=== PATIENT | female | born 1960 | race Caucasian/White ===

== ENCOUNTER 2017-03-23 05:36 | Day surgery (SDC) | payer OTHER ==
--- NOTE | 2017-03-09 16:49 | NUR ---
JOINT REPLACEMENT PREOP CLASS PATIENT ATTENDED JOINT REPLACEMENT PREOP CLASS. CASE MANAGEMENT CONTACT INFORMATION PROVIDED. EDUCATION WAS PROVIDED REGARDING WHAT TO EXPECT BEFORE, DURING AND AFTER SURGERY. INCLUDING: OVERVIEW OF ANATOMY AND PHYSIOLOGY HOSPITAL TREATMENT SCHEDULE THERAPY DEMONSTRATION CASE MANAGEMENT RESPONSIBILITIES DISCHARGE PLANNING EQUIPMENT NEEDS JOINT REPLACEMENT WORKBOOK ANTI-COAGULATION SURGERY STRONG NUTRITIONAL PROTOCOL DISCHARGE INSTRUCTIONS [facility] [place], WITH INSTRUCTIONS [facility] AND PREOP SURVERY PREOP BATHING- CHG GIVEN ALL PATIENT'S QUESTIONS ANSWERED TO THEIR SATISFACTION. PATIENTS AND COACHES ENCOURAGED TO CALL WITH ANY ADDITIONAL QUESTIONS OR CONCERNS. CM FOLLOWING FOR TRANSITIONAL CARE PLANNING NEEDS DURING HOSPITALIZATION.
[~2017-03-23] VITALS: Ht 162.6 cm; Wt 76.9 kg
[2017-03-23] VITALS (30 sets, daily range): BP systolic 110–148; BP diastolic 57–91; PULSE 70–104; RESP 15–27; TEMP 97.1–98.3; O2SAT 91–98; Ht 162.6 cm; Wt 76.9 kg
[~2017-03-23 05:36] MED LIST: ACYC800T PO; DULO60CA25 PO; HYDR-4072 PO; LEVO125T11 PO; LOSA25TA34 PO; MELO-273 PO
[2017-03-23] MEDS ORDERED: MELOXICAM 15 MG TABLET PO ONE (06:00)
[2017-03-23] MEDS ORDERED: FAMOTIDINE 20mg IVPB 50 ML IV ONE (06:00)
[2017-03-23] MEDS ORDERED: METOCLOPRAMIDE 10mg/2ml INJECTION IV ONE (06:00)
[2017-03-23] MEDS ORDERED: LIDOCAINE 1% (10mg/ml) 2ml SDV SQ ONE (06:00)
[2017-03-23] MEDS ORDERED: LR 1,000 ML IV SCH (07:00)
[2017-03-23] MEDS ORDERED: DEXAMETHASONE 4mg/ml - 1ml INJECTION IV ONE (07:00)
[2017-03-23] MEDS ORDERED: NOZIN NASAL SWAB NS ONE ×2 (07:00→09:45)
[2017-03-23] MEDS ORDERED: ONDANSETRON 4mg/2ml INJECTION IV ONE (07:00)
[2017-03-23] MEDS ORDERED: ACETAMINOPHEN 500 MG TABLET PO ONE (07:00)
[2017-03-23] MEDS ORDERED: VANCOMYCIN 1 GRAM INJECTION ONE (07:05)
--- NOTE | 2017-03-23 07:07 | ANESPREOP ---
Anesthesia Record Date and Time DATE: 03/23/17 TIME: 07:04 Pre-Op Diagnosis right knee osteoarthritis Proposed Surgical Procedure RT PKA VS TKA NPO since: 2199 Allergies: Coded Allergies: No Known Drug Allergies (Verified Allergy, Unknown, 03/22/17) Ht/Wt/BMI Height: 5 ' 4.00 " Weight: 76.900 kg BMI: 29.1 kg/m2 Vital Signs Date Time Temp Pulse Resp B/P Pulse Ox O2 Delivery O2 Flow Rate FiO2 03/23/17 05:53 85 16 03/23/17 05:47 98.1 141/91 93 Room Air Medications Inpatient Medications Current Medications Medications (Trade) Dose Ordered Sig/Dada Start Time Stop Time Status Last Admin Dose Admin Lactated Ringer's (Lactated Ringers) 1,000 ml @ 50 mls/hr Q20H 03/23/17 07:00 03/23/17 06:14 50 MLS/HR Acyclovir (Acyclovir) 800 Mg Tablet, 1 TAB PO 5XD PRN for PAIN, (Reported) Last Taken: on 02/21/17 Duloxetine Hcl (Cymbalta) 60 Mg Capsule.dr, 60 MG PO QAM, (Reported) Last Taken: on 03/22/17629 Hydrocodone/Acetaminophen (Hydrocodon- Acetaminoph 7.5-325) 7.5-325 Tablet, 1 TAB PO Q4-6HPRN, (Reported) Last Taken: on 03/22/171999 Levothyroxine Sodium (Levothyroxine Sodium) 125 Mcg Tablet, 125 MCG PO ACB, (Reported) Once daily before breakfast. Last Taken: on 03/22/17629 Losartan Potassium (Losartan Potassium) 25 Mg Tablet, 2 TAB PO DAILY, (Reported) Last Taken: on 03/22/17629 Meloxicam (Meloxicam) 7.5 Mg Tablet, 1 TAB PO BID, (Reported) Last Taken: on 03/01/17 Currently on Beta Leanne: No Medical/Surgical History Anesthesia PMH: Reports: *Hypertension, Arthritis (OSTEOARTHRITIS), Pneumonia ( 1996), Reflux, Thyroid Disease (HYPOTHYROID), Denies: *Angina, *Diabetes, * Dyspnea, *UT, Anesthesia Reactions, Asthma, CHF, COPD, CVA/Stroke/TIA, Cancer, Cardiac Arrythmia, Clotting Problems, Deep Vein Thrombosis, Glaucoma, Hepatitis , Hiatal Hernia, Malignant Hyperthermia, Pacemaker, Renal Disease, Rheumatic Fever, Seizures, Sleep Apnea, Tuberculosis Smoking Status: Current every day smoker Has pt. smoked today?: No # of Packs per Day: 0.5 # of Years: 20 Use Chewing Tobacco?: No Second Hand Exposure: No Substance Use Type: does not use Substance last used: prior to arrival Alcohol Intake: none HX of Last Menstrual Period: HYST Past Surgical History Orthopedic Surgeries: No Abdominal Surgeries: No Genitourinary Surgeries: No Cardiac Surgeries: No Endocrine Surgeries: No Reproductive Surgeries: Yes - TUBAL LIGATION; UTERINE ABLATION; SUBTOTAL HYSTERECTOMY Neurological Surgeries: No Ear Surgeries: No Nose Surgeries: No Throat Surgeries: Yes - TONSILS Other Surgeries: Yes - WISDOM TEETH, 4 REMOVED,COLONOSCOPY Anesthesia Adverse Reactions: FOUND none Family Hx of Anesthesia Advers: none Hx of Motion Sickness: No Pertinent Findings EKG Rhythm: Sinus Rhythm Physical Exam Respiratory: Lungs clear Cardiovascular: FOUND Regular rate, rhythm, FOUND No murmur Airway Assessment Mallampati Score: II TMD: 3 Fingerbreadths Neck Extension: Good Teeth: Chipped Teeth/Crowns Overall Assessment: No Airway Concerns ASA: 2 Plan Regional: Spinal Peripheral Nerve Block: Saphenous - RT Discussion Discussed risks/options/alternatives of anesthesia and questions answered. Patient consents. Nursing pain assessment noted. Present: Spouse Attestation Statement Prior to the delivery of any anesthetic medication, I examined the patient, developed the plan, obtained the patient's consent and discussed the risk and benefits of the procedure with the patient/guardian. CHAD VANG CRNA March 23, 2017 07:07
[2017-03-23] MEDS ORDERED: MIDAZOLAM 2mg/2ml INJECTION ONE (07:19)
[2017-03-23] MEDS ORDERED: PROPOFOL 500mg 50 ML IV ONE ×3 (07:21→09:06)
[2017-03-23] MEDS ORDERED: TRANEXAMIC ACID 1,000 MG in NORMAL SALINE 100 ML IV ONE ×2 (07:30→08:30)
[2017-03-23] MEDS ORDERED: CEFAZOLIN 2 GM VIAL IV ONE (07:30)
[2017-03-23] MEDS ORDERED: ROPIVACAINE 0.5% (5mg/ml) 30ml INJ ONE (07:58)
[2017-03-23] MEDS ORDERED: EPINEPHRINE 0.25 MG, BUPIVACAINE 0.25% 75 MG, MORPHINE SULFATE 15 MG, KETOROLAC 60 MG i... INJ ONE ×5 (08:30)
[2017-03-23] MEDS ORDERED: PHENYLEPHRINE 10mg/ml INJECTION ONE (09:31)
[2017-03-23] MEDS ORDERED: SALINE FLUSH 10ml SYRINGE ONE (09:32)
--- NOTE | 2017-03-23 09:34 | PDOPERATE ---
Operative Report Date of Operation 03/23/17 Side: Right Preoperative Diagnosis: knee primary DJD Postoperative Diagnosis Same as preoperative diagnosis. Operation/Procedure: medial partial knee replacement (right) Surgeon Silke Gottlieb MD [employer] DENI Pierre Complications None. Regional Block: Spinal Estimated Blood Loss See Anesthesia Record. Fluids Please See Anesthesia Record. Description of Operation Ms. Nolan and her right knee were identified and marked in the the preoperative holding area. She was then brought back to the operating suite and proper anesthesia was administered. She was then positioned supine on the operating table with the right leg in a leg rivera. The right lower extremity was then prepped and draped in my normal sterile fashion. Timeout was performed with all operating room personnel. The leg was exsanguinated and the tourniquet turned up to 250 mmHg. A medial anterior skin incision was made followed by a medial parapatellar arthrotomy. The knee was examined. She had classic anterior medial osteoarthritis in the medial compartment. I do not appreciate any changes in the patellofemoral or lateral compartments. We placed a small spoon followed by a tibial cutting guide with a 4 clamp and tibial cuts were performed. I did remove notch osteophytes before this. I am guide in the femur was then placed followed by a size 4 femoral cutting guide and our femoral holes were drilled. Posterior tibial cut was then made and the bone removed. At this point remaining meniscus was removed. We then placed a 0 spigot and reamed over this. With trialing she was tight in both flexion and extension with 3 spacer to took another millimeter off the tibial cut. We then used through 1 and a 2 spigot and with this she was well balanced with the 4 spacer in both flexion and extension. The tibia and femur were then prepared and then irrigated and dried for cementing. A size B tibia and a small femur was then cemented into place and allowed to cure with the 4 mm spacer. Then a solution was used during the curing period as well as joint cocktail was injected throughout soft tissue. The tourniquet was let down and hemostasis was obtained. I then trialed with a 4 and a 5 mm spacer the 5 still gave plenty of wiggle both flexion and extension and was well balanced after another thorough irrigation a final size 5 mm spacer was placed. 1 g vancomycin powder was placed into the joint followed by closure of the capsule with #1 Vicryl I then allowed my quality assurance assistant to close the subcutaneous tissue with 2-0 Vicryl followed by running 4-0 Monocryl in the skin followed by Dermabond and a sterile dressing. She will will then be taken back to the recovery room under the care of anesthesia at the completion of surgery. JOAQUIM GOTTLIEB MD March 23, 2017 09:34
[2017-03-23] MEDS ORDERED: LORAZEPAM 1 MG TABLET PO PRN (09:45)
[2017-03-23] MEDS ORDERED: ACYCLOVIR 800 MG TABLET PO PRN (09:45)
[2017-03-23] MEDS ORDERED: PRN ORDERS MC (09:45)
[2017-03-23] MEDS ORDERED: ONDANSETRON 4mg/2ml INJECTION IV PRN ×2 (09:45)
[2017-03-23] MEDS ORDERED: SENNOSIDES 8.6 MG TABLET PO PRN (09:45)
[2017-03-23] MEDS ORDERED: DiphenhydrAMINE 25 MG CAPSULE PO PRN (09:45)
[2017-03-23] MEDS ORDERED: DiphenhydrAMINE 50 MG/ML INJECTION IV PRN (09:45)
--- NOTE | 2017-03-23 09:46 | NUR ---
CM CM ATTEMPTED VISIT. PT IS AT PROCEDURE. NO FAMILY IS PRESENT IN THE ROOM. CM CONTACT INFORMATION IS LEFT AT THE BEDSIDE.
[2017-03-23] MEDS: HYDROMORPHONE 2mg/ml INJECTION IV PRN ×4 (10:05→10:44)
--- NOTE | 2017-03-23 11:10 | NUR ---
ARRIVAL PT TO ROOM 113 PER CART. PT TRANSFERRED SELF FROM CART TO BED. ABLE TO WIGGLE TOES AND HAS FEELING IN FEET BUT PT STATES "MY BUTT IS NUMB". PT DID HAVE INCONT VOID WHILE TRANSFERRING. PT STATES PAIN IS 4/10 IN RIGHT KNEE. DERMABOND, MEPILEX, LISA WRAP, AND POLAR PACK WITH BARRIER TOWEL. DRESSING C/D/I. INITIAL ASSESSMENT DONE AT THIS TIME. VS STABLE. PT RESTING IN BED WITH ALARM. CALL LIGHT WITHIN REACH. WILL CONTINUE TO MONITOR.
[2017-03-23] MEDS: NORMAL SALINE 1,000 ML IV SCH ×2 (11:13→23:48)
[2017-03-23] MEDS: OXYCODONE I.R. 5 MG TABLET PO PRN ×4 (11:39→21:37)
[2017-03-23] MEDS: ACETAMINOPHEN 325 MG TABLET PO SCH ×3 (12:22→21:37)
--- NOTE | 2017-03-23 14:22 | DI ---
Indication: ITS.REASON: POSTOP PROCEDURE: KNEE RIGHT 2 VIEW: Encounter: Initial Comparison: Knee radiographs dated February 27, 2016 Findings: Unicompartmental medial hemiprosthesis appears intact. No acute fracture. Impression: Findings as above. .
--- NOTE | 2017-03-23 14:22 | ANESPO ---
Post-Op Note Date 03/23/17 Time: 14:29 Status Pt Participated in Evaluation: Pt participated in person Vital Signs Date Time Temp Pulse Resp B/P Pulse Ox O2 Delivery O2 Flow Rate FiO2 03/23/17 12:55 85 139/82 96 Room Air 03/23/17 11:41 16 03/23/17 11:10 97.1 Respiratory Function: Airway patent, Regular respirations Cardiovascular Function: Regular pulse Pain Level Intensity: 4 Unable to Assess Pain Due To: GIVEN INTRA OP Hydration: Taking po fluids, IV infusing Complications during Recovery None apparent Follow-Up Instructions Instructions Per Surgeon CHAD VANG CRNA March 23, 2017 14:22
[2017-03-23] MEDS ORDERED: POLY17PO6 PO (14:24)
[2017-03-23] MEDS ORDERED: ACET-2321 PO (14:24)
[2017-03-23] MEDS ORDERED: ASPI-917 PO (14:24)
[2017-03-23] MEDS ORDERED: OXYC5TAB84 PO (14:24)
[2017-03-23] MEDS: NOZIN NASAL SWAB NS SCH ×2 (14:35→21:37)
[2017-03-23] MEDS: CEFAZOLIN 2 G in NORMAL SALINE 100 ML IV SCH ×2 (16:30→23:48)
--- NOTE | 2017-03-23 17:49 | NUR ---
STATUS PT A/O X3. UP WITH ASSIST OF WALKER AND GAIT BELT. VOIDING ADEQUATELY. TOLERATING REG DIET. PRN OXYCODONE GIVEN FOR PAIN DOCUMENTED. PT ON RA, DENIES SOA. PT RESTING IN BED WITH ALARM. CALL LIGHT WITHIN REACH. WILL CONTINUE TO MONITOR.
[2017-03-23] MEDS: ASPIRIN *EC* 325mg TABLET PO SCH (21:37)
[2017-03-23] MEDS: MELOXICAM 7.5 MG TABLET PO SCH (21:38)
[2017-03-23] MEDS ORDERED: SENNOSIDES 8.6 MG TABLET PO SCH (22:00)
[2017-03-24] MEDS: OXYCODONE I.R. 5 MG TABLET PO PRN ×3 (01:35→08:30)
[2017-03-24 04:33] VITALS: BP 153/85; PULSE 89; RESP 18; O2SAT 98
[2017-03-24 05:18] LABS: HCT - HEMATOCRIT 37.7 % (36-46); HGB - HEMOGLOBIN 12.2 GM/DL (12-16); MEAN CORPUSCULAR HGB 32.2 UUG (26-34); MEAN CORPUSCULAR HGB CONC(MCHC 32.4 GM/DL (31-37); MEAN CORPUSCULAR VOLUME 99.5 UM3 (80-100); MEAN PLATELET VOLUME 10.6 UM3 (9.4-12.4); RED BLOOD COUNT 3.79 M/MM3 (4.00-5.20); WBC - WHITE BLOOD COUNT 16.7 T/MM3 (4.5-11.0)
[2017-03-24 05:29] LABS: ANION GAP 13 MEQ/L (5-15); BUN/CREATININE RATIO 23 RATIO (6-26); CALCIUM 9.5 MG/DL (8.4-10.2); CHLORIDE 105 MEQ/L (98-107); CO2 - CARBON DIOXIDE 26 MEQ/L (22-30); CREATININE 0.6 MG/DL (0.7-1.2); GLOMERULAR FILTRATION RATE 104; GLUCOSE 105 MG/DL (65-110); POTASSIUM 3.9 MEQ/L (3.6-5); SODIUM 144 MEQ/L (134-144)
[2017-03-24] MEDS: NOZIN NASAL SWAB NS SCH (06:07)
[2017-03-24] MEDS ORDERED: LEVOTHYROXINE 125 MCG TABLET PO SCH (06:30)
--- NOTE | 2017-03-24 07:00 | NUR ---
End of Shift Summary: Ambulates with one, gait belt and walker to bathroom several times during this shift. Voids clear yellow urine. Excellent PO intake. IV fluids, NS, infuses at 80 cc/hr. Polar ICe pack remains on right knee during the night. Roxicodone 10 mg. given PO X 3 during the night. O2 sats decrease to 80s when patient sleeps. She is on continuous oximetry. Resp. Therapy notified. Oxygen set up for 2/L per NC
[2017-03-24 08:08] VITALS: BP 142/85; PULSE 72; RESP 18; TEMP 97.5; O2SAT 96
--- NOTE | 2017-03-24 08:09 | PDORTHOPN ---
Subjective Date DATE: 03/24/17 TIME: 08:05 Subjective Mrs Nolan is doing well. No pain at this time. No CP, cough or SOA. Has some reflux sx when lying flat. She has been up a limited amount. Will work with PT more today. Objective Vital Signs Vital signs Vital Signs 03/23/17 03/24/17 23:52 04:33 Temp 98.0 Pulse 86 89 Resp 20 18 B/P 120/74 153/85 Pulse Ox 98 98 O2 Delivery Nasal Cannula Room Air O2 Flow Rate 2.00 Height (Feet): 5 Height (Inches): 4.00 Weight (Kilograms): 76.900 General General Appearance: No Acute Distress Respiratory (Brief) Respiratory Brief: FOUND: non-labored Cardiovascular (Brief) Cardiac: FOUND: calf easily compressible, calf soft, nontender, pedal pulses intact Surgical Site Incision: FOUND: Mepilex dressing intact, no drainage Neurologic (Brief) Neurological Brief: FOUND: extremities w/o deficits, neuro intact Psychiatric (Brief) Psychiatric Brief: FOUND: alert, no acute distress Laboratory Laboratory Laboratory Tests 03/24/17 04:14 Laboratory Tests 03/24/17 04:14 Assessment & Plan Problems: (1) Degenerative arthritis of right knee Status: Chronic Qualifiers: Osteoarthritis type: primary Qualified Codes: M17.11 - Unilateral primary osteoarthritis, right knee Assessment & Plan: x Right knee partial knee replacement 5/2 SCDs, Aspirin x 6 weeks and mobilization for DVT prevention. Mobilize with PT / OT and discharge later today. Avoid tobacco products has been discussed with pt before surgery. f/u in 3 weeks. Hospital Course Summary Disclaimer The visit summary below is not to be considered part of the above Progress Note. EVAN HOLDEN March 24, 2017 08:09
[2017-03-24] MEDS: ASPIRIN *EC* 325mg TABLET PO SCH (08:30)
[2017-03-24] MEDS: ACETAMINOPHEN 325 MG TABLET PO SCH (08:31)
[2017-03-24 08:39] VITALS: PULSE 72; RESP 18
--- NOTE | 2017-03-24 08:39 | NUR ---
CM CM IN TO VISIT WITH PT. SHE IS ALERT AND ORIENTED. SHE PLANS TO RETURN HOME. SHE HAS FWW. SHE WILL DO OUTPT PT AT [facility]. SHE IS GIVEN CM CONTACT INFORMATION. MAYRAE SCORE IS 8. Addendum: 03/24/17 at 0841 by ROGER PINA RN Amended: Links added.
[2017-03-24] MEDS: MELOXICAM 7.5 MG TABLET PO SCH (08:54)
[2017-03-24] MEDS ORDERED: POLYETHYL.GLYCOL 3350 PACKET 17gm PO SCH (09:00)
[2017-03-24] MEDS ORDERED: DULOXETINE 60 MG CAPSULE PO SCH (09:00)
[2017-03-24] MEDS ORDERED: DOCUSATE SODIUM 100 MG CAPSULE PO SCH (09:00)
[2017-03-24] MEDS ORDERED: LOSARTAN 50 MG TABLET PO SCH (09:00)
--- NOTE | 2017-03-24 11:01 | NUR ---
DISMISSAL PATIENT DISMISSED TO HOME FOR SELF-CARE THE MAIN [facility] ENTRANCE VIA WHEELCHAIR. PATIENT STABLE AND ON ROOM AIR AT TIME OF DISCHARGE. PERSONAL BELONGINGS SENT WITH PATIENT. IV CATHETER REMOVED AND IV CATHETER TIP INTACT. D/C INSTRUCTIONS REVIEWED PRIOR TO D/C. TOPICS DISCUSSED INCLUDED: NEW MEDICATIONS, S/S TO REPORT, FOLLOW UP APPOINTMENTS, INCISION CARE.
[2017-03-25] MEDS ORDERED: MILK OF MAGNESIA 30 ML SUSP PO SCH (08:00)
[2017-03-25] MEDS ORDERED: BISACODYL 10 MG SUPPOSITORY RECTALLY SCH (20:00)
== END 2017-03-24 11:01 | disposition home or self-care (01) ==
LOC: SRG 05:36 → SCU 05:36
PROVIDERS: ATTEND Orthopaedic Surgery
DX: M17.11 Unilateral primary osteoarthritis, right knee (principal); E03.9 Hypothyroidism, unspecified; F34.1 Dysthymic disorder; F17.210 Nicotine dependence, cigarettes, uncomplicated; E66.3 Overweight; Z79.899 Other long term (current) drug therapy; Z68.28 Body mass index [BMI] 28.0-28.9, adult; Z90.710 Acquired absence of both cervix and uterus
CPT/HCPCS: 27446; 36415; 73560; 80048; 85027; 97116; 97162; 97166; 97535; J0171; J0690; J1100; J1170; J1885; J2250; J2370; J2405; J2765; J3370; J7030; J7050; J7120